=== PATIENT | male | born 1995 | race Caucasian/White ===

== ENCOUNTER 2018-05-14 00:04 | Emergency (ER) | payer SELFPAY ==
[~2018-05-14] VITALS: Ht 180.3 cm; Wt 110.0 kg
[2018-05-14 00:38] VITALS: BP 142/71
== END 2018-05-14 03:16 | disposition home or self-care (01) ==
LOC: ER 00:04
DX: S20.212A Contusion of left front wall of thorax, initial encounter (principal); S80.212A Abrasion, left knee, initial encounter; S70.02XA Contusion of left hip, initial encounter; V43.52XA Car driver injured in collision with other type car in traffic accident, initial encounter; Y93.89 Activity, other specified; Y92.488 Other paved roadways as the place of occurrence of the external cause
CPT/HCPCS: 71045; 99283